=== PATIENT | female | born 1980 | race Asian ===

== ENCOUNTER 2016-07-01 23:03 | Emergency (ER) | payer OTHER ==
[~2016-07-01] VITALS: Ht 165.1 cm; Wt 51.7 kg
[2016-07-01] MEDS ORDERED: NKM (23:18)
[2016-07-01 23:20] VITALS: BP 107/55
[2016-07-02 00:07] LABS: APPEARANCE,URINE CLEAR; KETONES,URINE NEGATIVE (NEGATIVE); LEUKOCYTE ESTERASE ,URINE 1+ (NEGATIVE); NITRITE,URINE NEGATIVE (NEGATIVE); PH,URINE 6 (4.5-8.0); PROTEIN,URINE NEGATIVE (NEGATIVE); UROBILINOGEN,URINE NORMAL MG/DL (0.0-1.0)
[2016-07-02 00:13] LABS: BACTERIA,URINE FEW /HPF; RBC,URINE TNTC /HPF (0 - 2); SQUAMOUS EPITHELIAL CELL,UR FEW /LPF (NONE/OCC)
[2016-07-02 00:29] LABS: BASOPHILS % (AUTO) 1.1 % (0.0-2.0); EOSINOPHILS % (AUTO) 1.6 % (0.0-3.0); LYMPHOCYTES % (AUTO) 19.3 % (20.0-45.0); MEAN CORPUSCULAR HEMOGLOBIN 29.5 PG (27.0-31.0); MEAN CORPUSCULAR HGB CONC 33.6 G/DL (32.0-36.0); MEAN CORPUSCULAR VOLUME 88 FL (80-99); MEAN PLATELET VOLUME 6.8 FL (6.5-10.1); MONOCYTES % (AUTO) 7.1 % (1.0-10.0); PLATELET COUNT 170 K/UL (150-450); RED BLOOD COUNT 4.62 M/UL (4.20-5.40); RED CELL DISTRIBUTION WIDTH 11.8 % (11.6-14.8); WHITE BLOOD COUNT 6.9 K/UL (4.8-10.8)
[2016-07-02 00:46] LABS: ANION GAP 16 (5-15); CARBON DIOXIDE 23 mEQ/L (20-30); CHLORIDE 101 mEQ/L (98-107); CREATININE 0.6 mg/dL (0.5-0.9); GLOMERULAR FILTRATION RATE > 60 mL/min (>60); HEMOLYSIS 6; POTASSIUM 3.8 mEQ/L (3.4-4.9); SODIUM 140 mEQ/L (135-145)
[2016-07-02 01:18] VITALS: BP 110/56
--- NOTE | 2016-07-02 01:57 | Emergency Room Report ---
History of Present Illness General Chief Complaint: Vaginal Source: Patient, Family Member Present Illness HPI This is a 36-year-old female who is 1 para 0, approximately 7 weeks . She had an ultrasound done last week which showed a gestational sac but no heartbeat. She's been having spotting and now increasing bleeding and cramps. Denies any fever or chills. Denies any trauma. Denies any other symptom. Denies any dysuria or frequency. Allergies: Coded Allergies: No Known Allergies (Unverified , 07/01/16) Patient History Past Medical History: none, see triage record, old chart reviewed Past Surgical History: none Pertinent Family History: none Social History: Denies: smoking Last Menstrual Period: May Now: No Immunizations: other Reviewed Nursing Documentation: PMH: Agreed, PSxH: Agreed Nursing Documentation-PMH Past Medical History: No Stated History Review of Systems Eye: Denies: blurred vision, eye pain ENT: Denies: ear pain, nose congestion, throat swelling Respiratory: Denies: cough, shortness of breath Cardiovascular: Denies: chest pain, palpitations Gastrointestinal: Denies: abdominal pain, diarrhea, nausea, vomiting Musculoskeletal: Denies: back pain, joint pain Skin: Denies: rash Neurological: Denies: headache, numbness Endocrine: Denies: increased thirst, increased urine Hematologic/Lymphatic: Denies: easy bruising All Other Systems: negative except mentioned in HPI Physical Exam Vital Signs Date Time Temp Pulse Resp B/P Pulse Ox O2 Delivery O2 Flow Rate FiO2 07/01/16 23:10 98.4 95 16 106/75 97 Room Air vitals normal Sp02 EP Interpretation: reviewed, normal General Appearance: well appearing, no apparent distress, alert Head: normocephalic, atraumatic Eyes: bilateral eye EOMI, bilateral eye PERRL ENT: hearing grossly normal, normal pharynx Neck: full range of motion, supple, no meningismus Respiratory: chest non-tender, lungs clear, normal breath sounds Cardiovascular #1: regular rate, rhythm, no murmur Gastrointestinal: normal bowel sounds, non tender, no mass, no organomegaly, no bruit, non-distended Musculoskeletal: back normal, gait/station normal, normal range of motion Psychiatric: mood/affect normal Skin: warm/dry Medical Decision Making Diagnostic Impression: Primary Impression: Threatened in early ER Course Patient presents with vaginal bleeding. Her beta-hCG is 14,000 but there is no heartbeat. There is a gestational sac. It is concerning for early miscarriage , blighted ovum, or early still. She will need followup with repeat blood work and ultrasound. We'll give her the labs results here. 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 Gestational sac without pole or heartbeat. No ectopic. Last Vital Signs Date Time Temp Pulse Resp B/P Pulse Ox O2 Delivery O2 Flow Rate FiO2 07/02/16 01:18 98.4 85 16 110/56 98 Room Air Status: unchanged Disposition: HOME, SELF-CARE Condition: Stable Referrals: NOT CHOSEN IPA/,REFERRING (PCP) Additional Instructions: Followup with the [facility] within a week. You will need repeat tests and ultrasound. Return if worse. MICHAEL ORNELAS M.D. Jul 02, 2016 01:57
[2016-07-02 02:02] VITALS: BP 108/57
[2016-07-02 02:03] VITALS: BP 108/57
--- NOTE | 2016-07-09 12:31 | Diagnostic Imaging Report ---
Indications: Vaginal bleeding, LMP 05/09/2016 Technique: Transabdominal and transvaginal real-time grayscale and duplex Doppler imaging of the pelvis was performed. Findings: Comparison: None Uterus measures 6.9 x 6 x 7.1cm. It demonstrates normal contour and myometrial echotexture without focal abnormality. It contains a small well-formed gestational sac in its fundus, and elongated but otherwise uniform in configuration. No adjacent fluid collections. Well-formed yolk sac within gestational sac. No pole or cardiac activity detected.. Small cysts in cervix.. No free fluid is present in the cul-de-sac. Right ovary not identified. No extra-ovarian abnormality is seen. Left ovary not identified. No extra-ovarian abnormality is seen. Gestational sac is not adequately measured. IMPRESSION: Early intrauterine , viability and estimated gestational age indeterminate. Multiple attempts were made to reach the patient to have her return for completion of imaging, unsuccessful. Cervical nabothian cyst Nonvisualization of ovaries
== END 2016-07-02 02:03 | disposition home or self-care (01) ==
LOC: EMR 23:55
DX: O20.0 Threatened abortion (principal); Z3A.00 Weeks of gestation of pregnancy not specified
CPT/HCPCS: 36415; 76801; 80048; 81001; 84702; 85025; 86850; 86900; 86901; 99284